=== PATIENT | female | born 1965 | race Caucasian/White ===

== ENCOUNTER 2017-02-18 06:30 | Emergency (ER) | payer OTHER ==
--- NOTE | ~2017-02-18 | ER ---
PATIENT'S NAME: ANDERS LOZA [facility] AGE: 51 Y [address] ROOM: [place] [address] LOCATION: [facility] ADMIT DATE: 02/18/2017 ER/Outpatient Report DISCHARGE DATE: FAMILY PHYSICIAN: Sam Mcgarry MD ATTENDING PHYSICIAN: Alonso Roberto Time of Arrival: 0630 hours. Time of Evaluation: 0635 hours. HISTORY OF PRESENT ILLNESS: The patient is a 51-year-old female who presented to the ER with chief complaint of feeling lightheaded with hot flushes and cold flushes and then feeling really anxious. It started this morning while she was getting ready for work. She said she took her morning pills, felt a sudden kind of heart palpitations, little bit of chest pain, and started to feel really hot right away and then sat down and felt really cold. She was dizzy, like she is going to pass out. Called her neighbor who brought her to the ER. Denies any history of this in the past. The patient does have a history of hypothyroid. Takes Synthroid every day for this and hypercholesterolemia and takes cholesterol medications. Surgery she can remember is having a hysterectomy. No other previous surgeries. The patient denies any tobacco use or illicit drug use. Does admit to occasional alcohol on the weekends. Otherwise, did find out later that the patient does take a new supplement called Thrive that she started this weekend. The patient denies current chest pain, shortness of breath. Denies vomiting, denies abdominal pain, leg pain, edema, headache, or vision change. Denies any urinary symptoms. Denies recent illness. Does admit to some nausea. PAST MEDICAL HISTORY: All documented on the medical record and reviewed by and Dr. Roberto. SOCIAL HISTORY: All documented on the medical record and reviewed by and Dr. Roberto. MEDICATIONS: All documented on the medical record and reviewed by and Dr. Roberto. ALLERGIES: ALL DOCUMENTED ON THE MEDICAL RECORD AND REVIEWED BY AND DR. ROBERTO. ROS: All systems were reviewed by me and negative with the exceptions of those noted in the HPI above. PHYSICAL EXAMINATION: PATIENT'S NAME: ANDERS LOZA [facility] AGE: 51 Y [address] ROOM: [place] [address] LOCATION: [facility] ADMIT DATE: 02/18/2017 ER/Outpatient Report DISCHARGE DATE: FAMILY PHYSICIAN: Sam Mcgarry MD ATTENDING PHYSICIAN: Alonso Roberto GENERAL: The patient is in no acute distress. Upon my examination, was mildly distressed from a distance before entering the exam bay. GCS is 15. She is alert and oriented x4. HEART: She was tachycardiac to 104 and her pulses were strong. No murmurs, rubs, or gallops. CHEST: Clear to auscultation bilaterally. ABDOMEN: Normal upon inspection. Soft, nontender, and nondistended. Positive bowel sounds in all quadrants. EXTREMITIES: Nontender. She is able to move all extremities without difficulty and had no pedal edema. SKIN: Warm, dry, and intact with no signs of rashes and she was able to ambulate into the bay without difficulty and she appears well-nourished and hydrated. LABORATORY DATA AND X-RAYS: I interpreted the EKG as normal sinus rhythm with no T-wave inversion or ST changes. There was no previous EKG for comparison. Reviewed the x-ray without acute cardiopulmonary abnormalities. Also, personally reviewed prior medical records including labs. Labs obtained, cardiac enzymes include troponins and CK-MB were normal or negative. Her CBC was normal. She had mildly low potassium at 3.6 and a mildly elevated assuming fasting glucose of 126. Otherwise, CMP was normal. TSH and T4 also returned normal and influenza A and B were both negative. IMPRESSION: 1. Palpitations 2. Adverse reaction to weight loss product. 3. Initial visit. ED COURSE: Patient was seen and evaluated in the emergency department by Dr. Alvarez in conjunction with Dr. Roberto. The patient was given 4 mg of ODT Zofran for her nausea and 0.5 mg of p.o. Ativan for her anxiety. She was monitored for 2 hours and was stable. Symptoms improved and the patient was no longer tachycardic and did not become tachycardic again. It was determined that the most likely cause of her symptoms was the new supplement that she is taking called Thrive, possible interactions with her Synthroid. The patient was counseled to avoid this supplement and to follow up with her primary care physician in 2-3 days. The patient was comfortable and agreeable with this plan. She was given a script for ODT Zofran at 4 mg q.6 p.r.n. and instructed to return if symptoms worsen or if she develops any other complaints or concerns. The patient was discharged in stable condition. SAMI ALVAREZ MD RESIDENT FOR ALONSO ROBERTO, SLL/modl PATIENT'S NAME: ANDERS LOZA [facility] AGE: 51 Y [address] ROOM: [place] [address] LOCATION: [facility] ADMIT DATE: 02/18/2017 ER/Outpatient Report DISCHARGE DATE: FAMILY PHYSICIAN: Sam Mcgarry MD ATTENDING PHYSICIAN: Alonso Roberto /[id number] ATTENDING ADDENDUM: ATTENDING ADDENDUM: I saw and evaluated the patient. I have discussed with the resident, agree with the resident's findings and plan and agree with the documented note above. The above note has been edited by myself. d: 02/18/17 0939 t: 02/19/17 0757, OUTPATIENT REPORT
[~2017-02-18 06:30] MED LIST: LEVOTHROID (S150 MCG PO; THERA-VITE W/ B1 TAB PO; VITAMIN E1000 UNI1 PO; ZOCOR40 MG PO
[2017-02-18 07:16] LABS: BASOPHIL # 0.1 K/uL (0.0-0.2); BASOPHIL % 1.2 %; EOSINOPHIL % 0.8 %; HEMATOCRIT 41.1 % (33.0-46.0); HEMOGLOBIN 14.2 g/dL (10.0-15.0); IMMATURE GRANULOCYTE % 0.4 %; LYMPHOCYTE % 40.5 %; MCH 30.9 pg (27.0-34.0); MCHC 34.5 gm/dL (32.0-36.5); MCV 89.5 fl (83.0-98.0); MONOCYTE # 0.5 K/uL (0.0-1.0); MONOCYTE % 10.6 %; MPV 8.9 fl (9.4-12.4); NEUTROPHIL # (ANC) 2.3 K/uL (1.8-7.8); NEUTROPHIL % 46.5 %; NRBC % 0 /100WBC (0-0.00); PLATELET COUNT 271 K/uL (150-450); RBC 4.59 M/uL (3.50-5.50); RDW-CV 12.1 % (11.9-14.6); WBC 4.9 K/uL (4.0-11.0)
[2017-02-18 07:24] LABS: PROTIME 10.2 SECONDS (9.6-11.1); PTT 24 SECONDS (25-32)
[2017-02-18 07:38] LABS: ALBUMIN 4.1 gm/dL (3.5-5.0); ALK PHOS 74 IU/L (33-138); ALT 30 IU/L (12-78); ANION GAP 10.6 (10.0-19.0); AST 20 IU/L (10-40); BLOOD UREA NITROGEN 17 mg/dL (6-24); CALCIUM 9.2 mg/dL (8.5-10.5); CHLORIDE 106 mMol/L (96-110); CO2 28 mMol/L (22-32); CPK 106 IU/L (21-215); CREATININE 0.9 mg/dL (0.5-1.1); ESTIMATED GFR (MDRD EQUATION) > 60; MAGNESIUM 2.2 mg/dL (1.3-2.6); POTASSIUM 3.6 mMol/L (3.7-5.1); SODIUM 141 mMol/L (135-145); TOTAL BILIRUBIN 0.4 mg/dL (0.0-1.5); TOTAL PROTEIN 7.5 g/dL (6.0-8.4)
== END 2017-02-18 08:50 | disposition disaster alternative care site (69) ==
LOC: GMED 06:30
PROVIDERS: Emergency Medicine
DX: R00.2 Palpitations (principal); T50.995A Adverse effect of other drugs, medicaments and biological substances, initial encounter; E78.00 Pure hypercholesterolemia, unspecified; Z90.710 Acquired absence of both cervix and uterus